=== PATIENT | female | born 1980 | race Asian ===

== ENCOUNTER 2021-10-08 22:34 | Emergency (ER) | payer BC ==
[~2021-10-08] VITALS: Ht 175.3 cm; Wt 190.5 kg
[2021-10-09 00:11] LABS: POTASSIUM 3.7 mmol/L (3.6-5.2)
[2021-10-09 00:50] LABS: PLATELET COUNT 244 K/uL (152-353)
[2021-10-09 02:40] VITALS: BP 140/72; TEMP 98.3
== END 2021-10-09 02:40 | disposition home or self-care (01) ==
LOC: ED 22:34
PROVIDERS: Emergency Medicine
DX: I10 Essential (primary) hypertension (principal); D64.89 Other specified anemias; Z20.822 Contact with and (suspected) exposure to COVID-19
CPT/HCPCS: 36415; 80048; 84484; 85008; 85027; 87635; 93005; 96374; 96375; 99284; J0360; J1940; J2405; U0003